=== PATIENT | female | born 2000 | race Caucasian/White ===

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

== ENCOUNTER 2018-11-06 23:58 | Emergency (ER) | payer MEDICAID ==
[~2018-11-06] VITALS: Ht 175.3 cm; Wt 63.0 kg
[2018-11-07 00:06] VITALS: BP 125/84
[2018-11-07] MEDS ORDERED: LIDOcaine 1% w/epiNEPHrine 1:200,000 30ml vial IM ONE (01:30)
[2018-11-07] MEDS ORDERED: sulfamethoxazole/trimethoprim DS (800/160mg) tablet PO ONE (01:30)
[2018-11-07] MEDS ORDERED: SULF1TAB49 PO (02:26)
[2018-11-07] MEDS ORDERED: HYDR-4353 PO (02:44)
== END 2018-11-07 02:52 | disposition home or self-care (01) ==
LOC: ER 23:59
DX: L02.415 Cutaneous abscess of right lower limb (principal); F15.90 Other stimulant use, unspecified, uncomplicated; F11.90 Opioid use, unspecified, uncomplicated; Z88.8 Allergy status to other drugs, medicaments and biological substances; Z79.899 Other long term (current) drug therapy
CPT/HCPCS: 10060; 99283; J3490